=== PATIENT | female | born 1945 | race Caucasian/White ===

== ENCOUNTER 2016-12-18 11:10 | Day surgery (SDC) | payer MEDICARE, OTHER ==
[~2016-12-18] VITALS: Ht 157.5 cm; Wt 63.6 kg
[~2016-12-18 11:10] MED LIST: ALDACTONE25 MG PO; AMBIEN CR12.5 MG/BO PO; BAYER CHEWABLE81 MG PO; BENICAR HCT 20-1 TA1 PO; BENICAR40 MG PO; BYSTOLIC10 MG PO; CALCIUM 250+D T1 TAB PO; CATAPRES0.2 MG PO; CYCLOBENZAPRINE10 MG PO; FISH OIL 1,0001 CA1 PO; GLUCOPHAGE500 MG PO; HYDRALAZINE HCL25 MG PO; KLONOPIN0.5 MG PO; MAXALT10 MG PO; NEURONTIN600 MG PO; NITROSTAT0.4 MG SL; NORVASC10 MG PO; ORAP1 MG PO; PHENERGAN50 MG RC; PLAVIX75 MG PO; PRAVACHOL40 MG PO; PROTONIX40 MG PO; TOPROL XL100 MG PO; VITAMIN C1000 MG PO
[2016-12-18 12:24] VITALS: BP 126/65; Ht 157.5 cm; Wt 63.6 kg
[2016-12-18 12:42] LABS: HEMATOCRIT 35.9 % (36.0-48.0); HEMOGLOBIN 12.2 g/dL (12-16); MCH 29.7 pg (26.0-34.0); MCV 87.3 fL (80.0-100.0); MEAN PLATELET VOLUME 8.8 fL (7.4-10.4); RBC 4.11 10x6/uL (4.00-5.40); RDW 13.9 % (11.5-14.5); WBC 11.1 10x3/uL (4.8-10.8)
[2016-12-18 12:53] LABS: ANION GAP 12.7 mmol/L (8-16); CALCIUM 9.3 mg/dL (8.5-10.1); CARBON DIOXIDE 31.9 mmol/L (21.0-32.0); POTASSIUM - SERUM 3.6 mmol/L (3.5-5.1)
--- NOTE | 2016-12-18 14:45 | NUR ---
1410- FULL LIQUIDS TOLERATED 1420- DR. GARCIA AT BEDSIDE, DISCUSSED EGD FINDINGS 1425- IV D/C'D, PT TOLERATED. CATHETER INTACT. 1440- DISCHARGE INSTRUCTIONS COMPLETED, PAPERWORK SIGNED. PT VERBALIZED UNDERSTANDING 1445- PT DISCHARGED VIA WHEELCHAIR
--- NOTE | 2016-12-22 17:02 | OP ---
PATIENT NAME: XAVIER RAI MEDICAL RECORD: [id number] :45 LOCATION:[facility] ADMISSION DATE: SURGEON: PEDRO GARCIA MD DATE OF OPERATION: 12/18/2016 PROCEDURE: EGD with biopsy and esophageal balloon dilatation. REFERRING PHYSICIAN: Micky Julien MD. INDICATIONS: Ms. Rai is a delightful 71-year-old woman with a history of GE reflux symptoms and Schatzki's ring. She last had an EGD on 09/05/2015 that showed a ringed appearance to the distal esophagus, small sliding type hiatal hernia, gastric polyp (dilated up to a 60-Canadian size balloon). She has done well until recently has been having some recurrence of her dysphagia. She presents for outpatient EGD. PREMEDICATIONS: Total IV anesthesia (history of coronary artery disease) propofol 200 mg. INSTRUMENT: [email or web address] video gastroscope and esophageal balloon dilator 60-Canadian. PROCEDURE AND FINDINGS: After receiving informed consent, Ms. Mojicas posterior pharynx was anesthetized with Cetacaine spray. She was placed in left lateral decubitus position and sedated as per anesthesia. After achieving an adequate level of sedation, gastroscope was introduced per orally and advanced into the duodenum without difficulty. The esophageal mucosa was without erythema, ulcers, or masses. At the GE junction was a Schatzki ring, nonobstructing. A small sliding type hiatal hernia is present. Gastric mucosa was notable for minimal prepyloric and antral erythema and antral biopsies were obtained to rule out Helicobacter pylori. No lesions were seen in the cardia, fundus, or body of the stomach. Pylorus was patent and competent. The duodenal mucosa was without erythema or ulcers. In the duodenal bulb was a large nonobstructing polypoid structure (likely Mazin's glands) and several small polyps were also present, which were all biopsied. Gastroscope was then withdrawn to the stomach and esophageal balloon dilator was then introduced through the gastroscope and the balloon was positioned midway across the distal esophagus insulated to a 60-Canadian size, held in place on the appropriate PSI and then deflated with good results. The balloon was withdrawn and then biopsies were taken from the mid and distal esophagus. Gastroscope was then withdrawn. Ms. Rai tolerated the procedure well, no immediate complications. ASSESSMENT: 1. Nonobstructive Schatzki's ring status post esophageal balloon dilatation. 2. Small sliding type hiatal hernia. 3. Mild gastritis. 4. 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 RECOMMENDATIONS: 1. Follow up histopathology. 2. Soft diet today. 3. EGD with esophageal balloon dilatation as needed. 4. Colonoscopy as scheduled for next week. TRANSINT:[id number] Voice Confirmation ID: [id number] DOCUMENT ID: [id number] OPERATIVE REPORT [id number] XAVIER RAI TERRI MD at 1702 CC: MICKY JULIEN [id number] DICTATION DATE: 12/18/16 1334 SHOT BLAST EQUIPMENT OPERATOR: 12/18/16 1514 [facility] 12/18/16 [id number] [place] [address]
== END 2016-12-18 14:45 | disposition home or self-care (01) ==
LOC: D.OPS 11:10
PROVIDERS: Anesthesiology
DX: K22.2 Esophageal obstruction (principal); I25.10 Atherosclerotic heart disease of native coronary artery without angina pectoris; K44.9 Diaphragmatic hernia without obstruction or gangrene; K29.50 Unspecified chronic gastritis without bleeding; K31.7 Polyp of stomach and duodenum; K20.9 Esophagitis, unspecified

== ENCOUNTER 2016-12-24 11:46 | Day surgery (SDC) | payer MEDICARE, OTHER ==
[~2016-12-24] VITALS: Ht 157.5 cm; Wt 63.6 kg
[2016-12-24 13:03] LABS: HEMATOCRIT 34.6 % (36.0-48.0); HEMOGLOBIN 12.7 g/dL (12-16); MCH 30.5 pg (26.0-34.0); MCHC 36.7 g/dL (31.0-37.0); MEAN PLATELET VOLUME 8.8 fL (7.4-10.4); RBC 4.17 10x6/uL (4.00-5.40); RDW 13.7 % (11.5-14.5); WBC 9.7 10x3/uL (4.8-10.8)
[2016-12-24 13:14] LABS: ANION GAP 16.2 mmol/L (8-16); CALCIUM 9.5 mg/dL (8.5-10.1); CARBON DIOXIDE 25.8 mmol/L (21.0-32.0); CREATININE - SERUM 0.9 mg/dL (0.6-1.3)
[2016-12-24 13:37] VITALS: BP 179/83; Ht 157.5 cm; Wt 63.6 kg
--- NOTE | 2016-12-25 18:05 | OP ---
PATIENT NAME: XAVIER RAI MEDICAL RECORD: [id number] :45 LOCATION:D.OPS ADMISSION DATE: SURGEON: PEDRO GARCIA MD DATE OF OPERATION: 12/24/2016 PROCEDURE: Colonoscopy with biopsy. REFERRING PHYSICIAN: Dr. Micky Julien. INDICATIONS: Ms. Rai is a very pleasant 71-year-old woman, who has had history of diarrhea. Her last colonoscopy was with Dr. Elan Cowan, 06/14/2013 with findings showing mild diverticular disease in the colon. She presents for outpatient colonoscopy. PREMEDICATIONS: Total IV anesthesia (coronary artery disease, ASA 3) propofol 280 mg. INSTRUMENT: Olympus video colonoscope. PROCEDURE AND FINDINGS: After receiving informed consent, Ms. Rai's placed in left lateral decubitus position and sedated as per anesthesia. After achieving an adequate level of sedation, digital rectal exam was performed that showed no external hemorrhoidal tags. No fissures or fistulas. Normal sphincter tone. No palpable rectal masses. Colonoscope was introduced per rectally and advanced to the cecum. The cecum, IC valve, and appendiceal orifice were identified. There was minimal patchy erythema in the ascending colon and biopsies were obtained to rule out microscopic colitis. In the sigmoid colon, was a moderate number of diverticula and one diverticulum had an inflamed opening with a mild purulent exudate. Stool was collected for study from the sigmoid colon (X-tag). Retroflexion in rectum showed mild internal hemorrhoids with a few hemorrhoidal tags. A fair prep was present. There was some semi-solid stool present in the cecum and the ascending colon as well as in the rectum. Ms. Rai tolerated the procedure well, no immediate complications. Withdrawal time was 7 minutes. ASSESSMENT: 1. Mild nonspecific colitis involving the ascending colon, rule out cholangitis colitis. 2. Moderate sigmoid diverticulosis with mild diverticulitis. 3. Mild internal hemorrhoids with hemorrhoidal tags. 4. Diarrhea. RECOMMENDATIONS: 1. Follow up histopathology. 2. Flagyl 500 mg 1 p.o. t.i.d. for 10 days. 3. We will check celiac serology. 4. Will be colonoscopy in 5 years. TRANSINT:[id number] Voice Confirmation ID: [id number] DOCUMENT ID: [id number] OPERATIVE REPORT [id number] XAVIER RAI PEDRO GARCIA MD at 1805 CC: MICKY JULIEN and CIARAN WALDEN MD [id number] DICTATION DATE: 12/24/[address] RECORDER: 12/24/16 1558 [facility] 12/24/16 [id number] [place] [id number]
== END 2016-12-24 16:45 | disposition home or self-care (01) ==
LOC: D.OPS 11:46
PROVIDERS: Anesthesiology
DX: K52.9 Noninfective gastroenteritis and colitis, unspecified (principal); K57.32 Diverticulitis of large intestine without perforation or abscess without bleeding; K64.8 Other hemorrhoids; K64.4 Residual hemorrhoidal skin tags

== ENCOUNTER 2017-11-23 08:57 | Day surgery (SDC) | payer MEDICARE, OTHER ==
[~2017-11-23] VITALS: Ht 157.5 cm; Wt 65.9 kg
--- NOTE | ~2017-11-23 | OP ---
PATIENT NAME: XAVIER RAI MEDICAL RECORD: [id number] :45 LOCATION:[facility]IL[facility] ADMISSION DATE: SURGEON: YON MCODNALD DO DATE OF OPERATION: 11/23/2017 PROCEDURE: EGD with balloon dilation less than 30 mm. INDICATIONS FOR PROCEDURE: Esophageal dysphagia and an abnormal barium esophagram. SCOPE: Olympus video gastroscope. MEDICATIONS: Propofol 140 mg IV per anesthesia. ESTIMATED BLOOD LOSS: Minimal. COMPLICATIONS: None. FINDINGS: Informed consent was given. The patient was made comfortable with the above medication. After reaching an adequate level of sedation by slow IV push, the patient was placed on her left side. The endoscope was then advanced under direct visualization through the mouth to the second portion of the duodenum. The upper and middle thirds of the esophagus appeared normal. In the distal third of the esophagus, there were a few patches of chayo. At the GE junction, there was a very minimal appearance of a Schatzki's ring. There did feel to be some traction on the endoscope consistent with possibly esophageal spasm or a hypertensive lower esophageal sphincter. The endoscope was advanced beyond the GE junction into the stomach and retroflexed to view the cardia, where a minimal hiatal hernia was present. The fundus, body, and antrum of the stomach appeared normal. No biopsies were taken on this examination. The endoscope was advanced beyond the pylorus into the duodenum where the entire exam in duodenum appeared normal. The endoscope was then withdrawn back into the stomach and an 18-20 mm CRE dilating balloon was placed through the working channel of the endoscope. The endoscope was withdrawn to a position where the middle of the balloon was insufflated at the GE junction and the ring. Multiple dilations were performed at this site up to 20 mm maximal diameter. Post-procedure appearances were satisfactory, but there still felt to be some traction on the endoscope. The endoscope was entirely withdrawn from the patient. The patient tolerated the procedure well and there were no complications. IMPRESSION: 1. Esophageal candidiasis. 2. Mild Schatzki's ring at the GE junction. 3. Minimal sliding hiatal hernia. PLAN AND RECOMMENDATIONS: 1. Discharge home when recovery parameters are met. 2. Fluconazole 100 mg daily times 7 days for the mild esophageal candidiasis. 3. Esophageal manometry to evaluate further the esophageal dysphagia. 4. Continue Dexilant for known GERD. TRANSINT:[id number] Voice Confirmation ID: [id number] DOCUMENT ID: [id number] OPERATIVE REPORT [id number] XAVIER RAI,YON Garza DO at 1225 CC: [id number] DICTATION DATE: 11/23/17 1051 FOOD MANAGEMENT AIDE: 11/23/17 1215 [id number] [place] [address]
[~2017-11-23 08:57] MED LIST changes: -BENICAR40 MG PO
[2017-11-23 09:40] LABS: HEMOGLOBIN 13.4 g/dL (12-16); MCH 31.2 pg (26.0-34.0); MCHC 35.3 g/dL (31.0-37.0); MCV 88.4 fL (80.0-100.0); MEAN PLATELET VOLUME 8.6 fL (7.4-10.4); RBC 4.3 10x6/uL (4.00-5.40); RDW 15.3 % (11.5-14.5); WBC 12.2 10x3/uL (4.8-10.8)
[2017-11-23 09:50] LABS: ANION GAP 14.4 mmol/L (8-16); CALCIUM 10.3 mg/dL (8.5-10.1); CARBON DIOXIDE 27.8 mmol/L (21.0-32.0); POTASSIUM - SERUM 3.2 mmol/L (3.5-5.1)
[2017-11-23] MEDS ORDERED: ORAP1 MG PO (10:02)
[2017-11-23] MEDS ORDERED: DEXILANT30 MG PO (10:07)
[2017-11-23 10:12] VITALS: BP 144/67; Ht 157.5 cm; Wt 65.9 kg
[2017-11-23] MEDS ORDERED: DIFLUCAN100 MG PO (11:13)
== END 2017-11-23 11:45 | disposition home or self-care (01) ==
LOC: D.OPS 08:57
PROVIDERS: Anesthesiology
DX: B37.81 Candidal esophagitis (principal); K22.2 Esophageal obstruction; K44.9 Diaphragmatic hernia without obstruction or gangrene

== ENCOUNTER → 2018-09-28 18:01 | Outpatient (CLI) | payer MEDICARE, OTHER ==
[2017-11-23 10:12] VITALS: BMI 26.6
[~2018-09-28 18:01] MED LIST changes: +DEXILANT30 MG PO; +DIFLUCAN100 MG PO
[2018-09-28 18:42] LABS: ANION GAP 16.7 mmol/L (8-16); CALCIUM 9.6 mg/dL (8.5-10.1); CARBON DIOXIDE 25.1 mmol/L (21.0-32.0); CREATININE - SERUM 1.3 mg/dL (0.6-1.3); POTASSIUM - SERUM 3.8 mmol/L (3.5-5.1)
== END | disposition home or self-care (01) ==
LOC: D.LABREF 18:01
PROVIDERS: Nurse Practitioner Adult Health
DX: I10 Essential (primary) hypertension (principal); N28.9 Disorder of kidney and ureter, unspecified

== ENCOUNTER 2019-08-11 18:58 | Inpatient (IN) | payer MEDICARE, OTHER ==
[2019-08-11] VITALS (17 sets, daily range): BP systolic 53–192; BP diastolic 23–94
[~2019-08-11] VITALS: Ht 157.5 cm; Wt 63.4 kg
[2019-08-11] MEDS ORDERED: HYDROCHLOROTH12.5 M1 PO (19:20)
[2019-08-11] MEDS ORDERED: BENICAR20 MG PO (19:21)
[2019-08-11] MEDS ORDERED: PROTONIX40 MG PO (19:21)
[2019-08-11] MEDS ORDERED: CYCLOBENZAPRINE10 MG PO (19:22)
[2019-08-11] MEDS ORDERED: COZAAR50 MG PO (19:22)
--- NOTE | 2019-08-11 19:25 | NUR ---
UNABLE TO ANSWER SI QUESTIONS AT TIME OF ARRIVAL
--- NOTE | 2019-08-11 19:29 | NUR ---
STOPPED AMIODARONE. D/T BRADYCARDIA AND HYPOTENSION. NOTIFIED
[2019-08-11 19:32] LABS: HEMATOCRIT 28.7 % (36.0-48.0); HEMOGLOBIN 8.8 g/dL (12-16); MCH 27.8 pg (26.0-34.0); MCHC 30.7 g/dL (31.0-37.0); MCV 90.8 fL (80.0-100.0); MEAN PLATELET VOLUME 9.4 fL (7.4-10.4); PLATELET COUNT 225 10x3/uL (130-400); RBC 3.16 10x6/uL (4.00-5.40); RDW 13.6 % (11.5-14.5); WBC 13.6 10x3/uL (4.8-10.8)
[2019-08-11 19:41] LABS: APTT 52.2 SECONDS (22.8-39.4); INR 1.74 (0.85-1.17); PROTIME 19.7 SECONDS (11.6-15.0)
[2019-08-11 19:44] LABS: ALBUMIN 2.5 g/dL (3.4-5.0); ALKALINE PHOSPHATASE 154 U/L (46-116); ALT (SGPT) 38 U/L (10-68); BILIRUBIN - TOTAL 0.58 mg/dL (0.2-1.3); CALC OSMOLALITY 287 mosm/kg (275-300); CALCIUM 7.9 mg/dL (8.5-10.1); CARBON DIOXIDE 15.4 mmol/L (21.0-32.0); CHLORIDE - SERUM 101 mmol/L (98-107); CREATININE - SERUM 1.3 mg/dL (0.6-1.3); PROTEIN - SERUM 4.9 g/dL (6.4-8.2); SODIUM 137 mmol/L (136-145); UREA NITROGEN 20 mg/dL (7-18); eGFR NON AFRICAN AMERICAN 42 mL/min (90-120)
[2019-08-11 19:46] LABS: GLUCOSE 295 mg/dL (74-106)
[2019-08-11 19:59] LABS: LYMPHOCYTES 60 % (15-50); MONOCYTES 8 % (2-11); NEUTROPHILS 29 % (40-80)
[2019-08-11 20:00] LABS: PLATELET ESTIMATE NORMAL
[2019-08-11 20:04] LABS: CKMB 2.9 U/L (0.0-3.6); CREATINE KINASE 108 UL (21-215); PRO BNP 4734 pg/mL (0-125); TROPONIN-I 0.021 ng/mL (0.000-0.060)
--- NOTE | 2019-08-11 20:57 | NUR ---
FREQUENT TITRATIONS ON LEVOPHED. 10MCG/MIN AT THIS TIME TITRATING DOWN
[2019-08-11 20:59] LABS: APPEARANCE HAZY (CLEAR); BACTERIA NONE SEEN /hpf (NEGATIVE); BILIRUBIN NEGATIVE (NEGATIVE); COLOR YELLOW (YELLOW); EPITHELIAL CELLS NSEEN /hpf (0-5); GLUCOSE 500 mg/dL (NEGATIVE); KETONE NEGATIVE (NEGATIVE); NITRITE NEGATIVE (NEGATIVE); PROTEIN TRACE mg/dL (NEGATIVE); SPECIFIC GRAVITY 1.005 (1.005-1.020); UROBILINOGEN NORMAL (NORMAL); WHITE CELLS - URINE NSEEN /hpf (NEGATIVE)
--- NOTE | 2019-08-11 21:04 | NUR ---
GCS 3 PUPILS DIALATED 10 FIXED. UNRESPONSIVE TO PAIN. HEART SOUND CLEAR. TACHYCARDIC. LUNG SOUNDS CRACKLES THROUGHOUT ALL OLIVEIRA. DEMINISHED IN LEFT LOWER LOBE. CAP REFILL 5 SECONDS
--- NOTE | 2019-08-11 23:35 | NUR ---
RECEIVED PT FROM ED VIA STRETCHER, ACCOMP BY ED STAFF AND RT. TRANSF TO ICU BED, RETAIL SECURITY PROFESSIONAL ATTACHED, VENT ATTACHED PER RT, HISTORY AND ADMISSION ASSESSMENT COMPLETED. WILL CONT TO MONITOR.
[2019-08-12] VITALS (37 sets, daily range): BP systolic 00–159; BP diastolic 00–98; Ht 157.5 cm; Wt 63.4 kg
--- NOTE | 2019-08-12 03:30 | NUR ---
REASSESSMENT COMPLETED. SEE FLOWSHEETS FOR ALL FINDINGS. PT ON VENT, ON LOW SEDATION TO SYNCHRONIZE THE VENT, VSS. NO ACUTE CHANGES NOTED IN PT'S STATUS AT THIS TIME. CPOC
--- NOTE | 2019-08-12 04:00 | NUR ---
DAUGHTER HERE AT BEDSIDE. UPDATED AND QUESTIONS ANSWERED.
[2019-08-12 04:13] LABS: BASOPHILS 0.1 % (0-2); EOSINOPHILS 0 % (0-7); HEMATOCRIT 34.3 % (36.0-48.0); IMMATURE GRANULOCYTES 0.4 % (0-5); LYMPHOCYTES 5.3 % (15-50); MCH 28.1 pg (26.0-34.0); MCHC 34.1 g/dL (31.0-37.0); MEAN PLATELET VOLUME 8.7 fL (7.4-10.4); MONOCYTES 3.5 % (2-11); NEUTROPHILS 90.7 % (40-80); RDW 13.6 % (11.5-14.5)
[2019-08-12 04:18] LABS: HEMOGLOBIN 11.7 g/dL (12-16); MCV 82.3 fL (80.0-100.0); PLATELET COUNT 272 10x3/uL (130-400); RBC 4.17 10x6/uL (4.00-5.40)
[2019-08-12 04:37] LABS: % SATURATION 4 % (15-55); IRON 17 ug/dl (35-150); TOTAL IRON BIND CAPACITY 363 ug/dl (260-445); UNSAT IRON BIND CAPACITY 346 ug/dl (150-375)
[2019-08-12 04:55] LABS: ALBUMIN 3.1 g/dL (3.4-5.0); ALKALINE PHOSPHATASE 247 U/L (46-116); CALCIUM 7.3 mg/dL (8.5-10.1); CHLORIDE - SERUM 100 mmol/L (98-107); CKMB 5.5 U/L (0.0-3.6); CREATININE - SERUM 1.3 mg/dL (0.6-1.3); FERRITIN 64 ng/mL (3-244); PHOSPHOROUS 3.4 mg/dL (2.5-4.9); SODIUM 138 mmol/L (136-145); eGFR NON AFRICAN AMERICAN 42 mL/min (90-120)
[2019-08-12 05:05] LABS: ALT (SGPT) 99 U/L (10-68); CALC OSMOLALITY 279 mosm/kg (275-300); CARBON DIOXIDE 25.2 mmol/L (21.0-32.0); CREATINE KINASE 394 UL (21-215); GLUCOSE 84 mg/dL (74-106); MAGNESIUM - SERUM 1.4 mg/dL (1.8-2.4); POTASSIUM - SERUM 3.3 mmol/L (3.5-5.1); PROTEIN - SERUM 6.2 g/dL (6.4-8.2); TROPONIN-I 0.912 ng/mL (0.000-0.060); UREA NITROGEN 27 mg/dL (7-18)
--- NOTE | 2019-08-12 17:12 | NUR ---
1315-NOTED NO NIBP REGISTERED HR-38-VENT IN PLACE-FAMILY AT BEDSIDE AND EXPRESSED CONCERN(GRAND DAUGHTER)-REASSURED DNR IN PLACE REQUESTED BY PT DAUGHTER-ENCOURAGED TO STAY WITH PT-STRESSED PT EXPERIENCING NO DISCOMFORT-SUGGESTED TO CALL DAUGHTER IN TO BE WITH PT WELL-LEVOPHED AT 20MCG 1403-NOTED ASYSTOLE-DR REYES NOTIFIED-CHRISTINA AND CORONOR PER HOSPITAL POLICY NOTIFIED 1415-DR REYES AT [facility]-SPOKE WITH FAMILY-RI PRONOUNCED-AFTER CARE STARTED-REMOVAL OF OS PROCEDURE WITH NO DIFFICULTY- 1420-FAMILY BROUGHT TO [facility]-ER ADMISSIONS NOTIFIED OF PT VALUABLES TO BE RETURNED TO FAMILY [facility] NOTIFIED REQUESTED BY FAMILY 1540-[facility] AT BEDSIDE FAMILY AND REPRESENTATIVES BROUGHT TO FAMILY RM 1610-PT RELEASED TO [facility] PER FAMILY AGREEMENT
--- NOTE | 2019-08-12 18:02 | MORECARE ---
CASE MANAGEMENT DISCHARGE SUMMARY PATIENT: XAVIER RAI UNIT: [id number] ADM DATE: 08/11/19 AGE: 73 : 45 SEX: F ROOM/BED: D.2309 AUTHOR: HAMMAD ORELLANA PHYSICIAN: REFERRING PHYSICIAN: JOSEFA REYES MD DATE OF SERVICE: 08/12/19 Discharge Plan Patient Name: XAVIER RAI Facility: [facility]:[place] : 1945 Planned Disposition: Anticipated Discharge Date: Discharge Date: 08/12/2019 Expected LOS: Initial Reviewer: [email or web address] Initial Review Date: 08/11/2019 Generated: 08/12/19 7:02 pm Patient Name: XAVIER RAI Page [id number] at 1802 All edits/amendments must be made on the electronic document DICTATION DATE: 08/12/191801 DAYCARE PROVIDER: CARL 08/12/191801 RPT#: [id number] DC DATE:08/12/19 STATUS: DIS IN [facility] [address] [place] [address] END OF REPORT
--- NOTE | 2019-08-15 09:43 | NUR ---
Per CMS protocol, restraint report logged into data base.
--- NOTE | 2019-08-15 14:34 | CN ---
PATIENT NAME:XAVIER WILSON MEDICAL RECORD: [id number] : 45 LOCATION:CELIAD.2309 ADMIT DATE: 08/11/19 ACCOUNT: [id number] CONSULTING PHYSICIAN: VANDANA ANDERSON MD REFERRING PHYSICIAN: JOSEFA REYES MD DATE OF CONSULTATION: 08/12/2019 CARDIOLOGY CONSULT DIAGNOSES: 1. Status post cardiopulmonary arrest. 2. Non-Q-wave myocardial infarction. 3. Hypotension. 4. Ventricular tachycardia. 5. Coronary artery disease. 6. Previous percutaneous transluminal coronary angioplasty stent. 7. Hyperlipidemia. 8. Noninsulin-dependent diabetes. HISTORY OF PRESENT ILLNESS: Mrs. Wilson is status post cardiopulmonary arrest in the field. When EMS arrived, after she collapsed at a neighbor's house, she was found to be asystole. ACLS measures were undertaken. She had multiple episodes of ventricular tachycardia. She is now on Cordarone. She has a wide complex tachycardia that appears to be sinus. She does have T-wave inversions and ST depression laterally as well. She has a non-Q-wave myocardial infarction. The family has made her a DNR at this point. PHYSICAL EXAMINATION: CONSTITUTIONAL/GENERAL APPEARANCE: The patient is intubated and sedated, unresponsive. EYES: Lids and conjunctivae noninjected. No discharge. No pallor. ENT: Lips within normal limit. No cyanosis. No pallor. NECK: Carotid arteries, bilateral normal upstroke. No bruits. No thrills. No jugular venous pressure or distention. CERVICAL LYMPH NODES: Nontender. Nonenlarged. THYROID: Not enlarged. No nodules. CARDIOVASCULAR: Precordial exam, nondisplaced. No heaves or pericardial thrills. Rate and rhythm, regular. Heart sounds, normal S1, normal S2. No S3, no gallop, no rub. Systolic murmur, not heard. Diastolic murmur, not heard. RESPIRATORY: Respiratory effort, unlabored. Normal curvature. No thoracic deformity. No chest wall tenderness. Percussion, resonant. Auscultation, clear. No wheezes, no rales, no rhonchi. ABDOMEN: Soft, nondistended, nontender. No abdominal pain, no vomiting and normal appetite. MUSCULOSKELETAL: No joint tenderness, normal gait, normal tone. SKIN: Warm and dry. OVERALL IMPRESSION: Status post cardiopulmonary arrest with non-Q-wave myocardial infarction in a patient with a past history of coronary artery disease and cardiac stents. Most likely this is ischemic in nature. She is stabilized on the Cordarone. Family has made her DNR. Hence, no other cardiac workup or treatment will be necessary at this time. TRANSINT:[id number] Voice Confirmation ID: [id number] DOCUMENT ID: [id number] CONSULT REPORT [id number] XAVIER WILSON JEFFREY MD at 1434 CC: [id number] DICTATION DATE: 08/12/19 1112 CAD ENGINEER: 08/12/19 1254 DIS IN 08/12/19 [facility] [address] [place] [address]
--- NOTE | 2019-08-15 14:34 | EC ---
PATIENT:XAVIER RAI DATE OF SERVICE: 08/11/19 SEX: F MEDICAL RECORD: [id number] DATE OF : 45 LOCATION:[facility] D230 AGE OF PATIENT: 73 ADMISSION DATE: 08/11/19 REFERRING PHYSICIAN: INTERPRETING PHYSICIAN: VANDANA MAJANO MD ECHOCARDIOGRAM REPORT ECHO CHARGES 4 ECHO COMPLETE Date: 08/12/19 CLINICAL DIAGNOSIS: CARDIAC ARREST ECHOCARDIOGRAPHIC MEASUREMENTS (adult normal given) AC root (d.<3.7cm) 2.4 cm LV Septum d (<1.2 cm> 1.3 cm Valve Excursion 1.5 cm LV Septum (systole) 1.4 cm Left Atria (s.<4.0cm> 2.7 cm LVPW d(<1.2cm) 1.2 cm RV (d.<2.3cm) 1.8 cm LVPW (sytole) 1.3 cm LV diastole(<5.6CM) 3.7 cm MV E-F(>70mm/sec) cm LV systole 3.0 cm LVOT Diameter 1.7 cm MV exc.(>10mm) cm Est.ejection fraction (50-75%) % DOPPLER: LVIT cm/sec A 73 cm/sec E 66 cm/sec LA cm/sec RVSP 33.3 mmHg LVOT 137 cm/sec AOP1/2T m/s Asc. Ao 180 cm/sec RVOT 113 cm/sec RA cm/sec PA 111 cm/sec AV Gradient Peak 13.0 mmHg AV Mean 6.0 mmHg AV Area 1.4 cm MV Gradient Peak 2.6 mmHg MV Mean 1.7 mmHg MV Area cm COMMENTS: Hooker Machine Tender: Darren VELIZ [employer] Writer: 1 Dr. Majano TAPE# PACS Pericardial Effusion N DATE OF SERVICE: 08/12/2019 PROCEDURE: Echocardiogram. FINDINGS: 1. Left ventricular chamber size is dilated. Left ventricular systolic function is markedly reduced at 15% to 20%. 2. Left atrium, right atrium, and right ventricular chamber sizes are within normal limits. 3. Valvular structures have normal structure and motion. ECHOCARDIOGRAM REPORT [id number] XAVIER RAI 4. Doppler interrogation reveals no significant valvular insufficiency or stenosis and pulmonary systolic pressure is estimated 33 mmHg. 5. No evidence of pericardial effusion or left ventricular thrombus. TRANSINT:[id number] Voice Confirmation ID: [id number] DOCUMENT ID: [id number] VANDANA MAJANO MD at 1434 CC: [id number] DICTATION DATE: 08/12/19 1207 WAD COMPRESSOR OPERATOR ADJUSTER: 08/12/19 1318 DIS IN 08/12/19 [id number] [place] [address]
== END 2019-08-12 16:20 ==
LOC: D.ER 18:58 → D.ICU 21:49
PROVIDERS: Family Medicine; ADMIT Internal Medicine Nephrology; ATTEND Internal Medicine Nephrology
PROC: 5A1935Z Respiratory Ventilation, Less than 24 Consecutive Hours (ICD-10-PCS; principal; 2019-08-11)
PROC: 5A12012 Performance of Cardiac Output, Single, Manual (ICD-10-PCS; 2019-08-11)
DX: I21.4 Non-ST elevation (NSTEMI) myocardial infarction (principal); G93.41 Metabolic encephalopathy; E87.2 Acidosis; N17.9 Acute kidney failure, unspecified; G93.1 Anoxic brain damage, not elsewhere classified; I47.2 Ventricular tachycardia; I46.2 Cardiac arrest due to underlying cardiac condition; Z66 Do not resuscitate; D64.9 Anemia, unspecified; I11.0 Hypertensive heart disease with heart failure; I50.9 Heart failure, unspecified; E11.9 Type 2 diabetes mellitus without complications; I25.10 Atherosclerotic heart disease of native coronary artery without angina pectoris; I95.9 Hypotension, unspecified; E87.6 Hypokalemia